=== PATIENT | female | born 1955 | race American Indian/Alaskan Native ===

== ENCOUNTER 2018-05-30 08:15 | Day surgery (SDC) | payer MEDICARE ==
[2018-05-30 08:36] VITALS: BMI 29.0
[2018-05-30] MEDS ORDERED: Propofol 10 mg/ml Inj (20 ML) ONE ×3 (09:15→09:36)
--- NOTE | 2018-05-30 09:19 | CP.SDSHP ---
Same Day Surgery H & P - History Proposed Procedure: colonoscopy Pre-Op Diagnosis: screen - Previous Medical/Surgical History Comments: anemia - Allergies Allergies: Allergies Penicillins Allergy (Intermediate, Verified 05/29/18 13:56) ITCHING - Physical Exam Vital Signs: Vital Signs 05/30/18 08:37 Temperature 97.5 F L Pulse Rate 73 Respiratory 18 Rate Blood Pressure 112/63 O2 Sat by Pulse 100 Oximetry Mental Status: Alert & Oriented x3 Neuro: WNL Heart: WNL Lungs: WNL GI: WNL - {Optional Preform as Required} Abdomen: WNL - Impression Impression: screen Pt. Evaluated Today:Candidate for Anesthesia & Procedure: Yes - Date & Time Date: 05/30/18 Time: 09:05 Short Stay Discharge - Short Stay Discharge Admitting Diagnosis/Reason for Visit: SCREENING Disposition: HOME/ ROUTINE
[2018-05-30 10:30] VITALS: TEMP 97.3
[2018-05-30 11:55] VITALS: O2SAT 99
[2018-05-30 11:58] VITALS: BP 110/52; PULSE 55; RESP 14
== END 2018-05-30 11:50 | disposition home or self-care (01) ==
LOC: C.ENDO 08:15
PROVIDERS: ATTEND Internal Medicine Gastroenterology
DX: Z12.11 Encounter for screening for malignant neoplasm of colon (principal); K64.1 Second degree hemorrhoids; K57.30 Diverticulosis of large intestine without perforation or abscess without bleeding; D12.0 Benign neoplasm of cecum; D64.9 Anemia, unspecified
CPT/HCPCS: 45385; 88305; J2704